=== PATIENT | female | born 1990 ===

== ENCOUNTER 2017-10-08 21:44 | Emergency (ER) | payer MEDICAID ==
--- NOTE | 2017-10-08 22:18 | Emergency Department Record ---
History of Present Illness - General Chief Complaint: Laceration(s) Stated Complaint: LACERATION ON FINGER OF LT HAND Time Seen by Provider: 10/08/17 22:14 Source: Patient Mode of Arrival: Ambulatory Limitations: No limitations - History of Present Illness Initial Commments: 27 yo female presents to ED for evaluation of a laceration to the left index finger while cutting fruit 30 minutes ago. Patient reports applying direct pressure which stopper her bleeding symptoms, denies numbness, tingling, or extension/flexion weakness on examination. Patient does not recall her last tetanus, denies health problems at her baseline. Onset/Timin -: Minutes(s) Extremity Location: Left: Hand Place: Home Context: Accidental Associated Symptoms: None Treatments Prior to Arrival: Bandage - [place] Coma Scale Eye Response: (4) Open spontaneously Motor Response: (6) Obeys commands Verbal Response: (5) Oriented Shayy Total: 15 - Related Data Hx Tetanus Toxoid Vaccination: Yes Patient Tetanus UTD (within 5 yrs): No Home Medications Medication Instructions Recorded Confirmed Last Taken Ranitidine HCl [Zantac] 150 mg PO DAILY 10/08/17 10/08/17 Unknown Previous Rx's Medication Instructions Recorded Cephalexin [Keflex] 500 mg PO QID #27 cap 10/08/17 Allergies Allergy/AdvReac Type Severity Reaction Status Date / Time Penicillins Allergy Severe Unverified 08/26/16 11:34 amoxicillin Allergy Mild rash Unverified 08/26/16 11:34 azithromycin Allergy Mild rash Unverified 08/26/16 11:34 Travel Screening - Travel/Exposure Within Last 30 Days Have you traveled within the last 30 days?: No - Travel Symptoms Symptom Screening: None Review of Systems Constitutional: Denies: Chills, Fever, Malaise, Night sweats Eyes: Denies: Eye discharge, Eye pain ENT: Denies: Congestion, Ear pain, Epistaxis Respiratory: Denies: Cough, Dyspnea Cardiovascular: Denies: Chest pain, Dyspnea on exertion Endocrine: Denies: Fatigue, Heat or cold intolerance Gastrointestinal: Denies: Abdominal pain, Nausea, Vomiting Genitourinary: Denies: Incontinence, Retention Musculoskeletal: Denies: Arthralgia, Back pain Skin: Reports: Other (Finger laceration). Denies: Bruising, Change in color Neurological: Denies: Abnormal gait, Confusion, Headache, Seizure Psychiatric: Denies: Anxiety Hematological/Lymphatic: Denies: Anemia, Blood Clots Past Medical History - SOCIAL HISTORY Smoking Status: Never smoker Alcohol Use: Rare Drug Use: None - RESPIRATORY Hx Respiratory Disorders: No - CARDIOVASCULAR Hx Cardio Disorders: No - NEURO Hx Neuro Disorders: Yes Comment:: ganglion cyst - GI Hx GI Disorders: Yes Hx Reflux: Yes - Hx Genitourinary Disorders: No - ENDOCRINE Hx Endocrine Disorders: No - MUSCULOSKELETAL Hx Musculoskeletal Disorders: No - PSYCH Hx Psych Problems: No - HEMATOLOGY/ONCOLOGY Hx Hematology/Oncology Disorders: No Family Medical History Any Significant Family History?: Yes Hx Alcohol Use: Father Hx Cancer: Mother *Cancer Comment: cervical/brain Hx Diabetes: Father Hx HTN: Father Hx Kidney Disease: Mother Hx Liver Disease: Father, Mother *Liver Comment: hep c-mother. father cirrohsis Physical Exam - General General Appearance: Alert, Oriented x3, Cooperative, Mild distress Limitations: No limitations - Head Head exam: Atraumatic, Normocephalic, Normal inspection Head exam detail: negative: Abrasion, Contusion, Peters's sign, General tenderness, Hematoma, Laceration - Eye Eye exam: Normal appearance. negative: Conjunctival injection, Periorbital swelling, Periorbital tenderness, Scleral icterus - ENT Ear exam: negative: Auricular hematoma, Auricular trauma Nasal Exam: negative: Active bleeding, Discharge, Dried blood, Foreign body Mouth exam: negative: Drooling, Laceration, Muffled voice, Tongue elevation - Neck Neck exam: Normal inspection. negative: Meningismus, Tenderness - Respiratory Respiratory exam: Normal lung sounds bilaterally. negative: Rales, Respiratory distress, Rhonchi, Stridor - Cardiovascular Cardiovascular Exam: Regular rate, Normal rhythm, Normal heart sounds Peripheral Pulses: 3+: Radial (L) - GI/Abdominal GI/Abdominal exam: Soft. negative: Rebound, Rigid, Tenderness - Rectal Rectal exam: Deferred - exam: Deferred - Extremities Extremities exam: Tenderness, Other (1.5 cm laceration over the dorsal aspect of the left index finger dorsally, no tendon laceration identified, bleeding well controlled.). negative: Calf tenderness, Pedal edema - Back Back exam: Denies: CVA tenderness (R), CVA tenderness (L) - Neurological Neurological exam: Alert, Normal gait, Oriented X3 - Psychiatric Psychiatric exam: Normal affect, Normal mood - Skin Skin exam: Normal color. negative: Abrasion Type of lesion: negative: abrasion Course Vital Signs 10/08/17 21:57 Temperature 98.4 F Pulse Rate [ 77 Pulse Ox Probe] Respiratory 18 Rate Blood Pressure 110/62 [Right Arm] Pulse Ox 96 - Reevaluation(s) Reevaluation #1: 10/08/17 22:35 1.5 cm laceration to the dorsum of the left index finger, bleeding controlled. Wound was cleaned and prepped in sterile fashion, no residual FB identified on examination. No tendon laceration is identified on examination, and extension/ flexion against resistance is intact on examination. Wound was anesthetized with 1.0 mL of 1% Sensorcaine with good anesthesia, and the laceration was repaired with 4-0 Prolene (#4) sutures in interrupted fashion. Patient tolerated the procedure well without complications. tetanus was updated prior to discharge. Will initiate keflex in ED as well as the patient was cutting food when the laceration occurred. Patient appears stable for discharge at this time. Disposition Disposition: Discharge Clinical Impression: Finger laceration Qualifiers: Encounter type: initial encounter Finger: index finger Damage to nail status: without damage Foreign body presence: without foreign body Laterality: left Qualified Code(s): S61.211A - Laceration without foreign body of left index finger without damage to nail, initial encounter Disposition: Home, Self-Care Condition: (2) Stable Instructions: Laceration (ED) Additional Instructions: Return to ED if your symptoms worsen or if you have any concerns. Keflex as directed. Follow-up with your family doctor in 3-5 days as directed. Prescriptions: Cephalexin [Keflex] 500 mg PO QID #27 cap Forms: Patient Portal Access Time of Disposition: 22:18 Quality - Quality Measures Quality Measures: N/A - Blood Pressure Screening Does Patient Have Any of the Following: No Blood Pressure Classification: Normal BP Reading Systolic Measurement: 110 Diastolic Measurement: 62 Screening for High Blood Pressure: < Normal BP, F/U Not Required > [G8783]
[2017-10-08] MEDS ORDERED: Diph,Pert(Acell),Tet Vac 0.5 ML SYR IM ONE (22:30)
[2017-10-08] MEDS ORDERED: CEPHALEXIN 500 MG CAPSULE PO STA (22:38)
== END 2017-10-08 22:50 | disposition home or self-care (01) ==
LOC: ER 21:44
DX: S61.211A Laceration without foreign body of left index finger without damage to nail, initial encounter (principal); W26.0XXA Contact with knife, initial encounter; Y92.009 Unspecified place in unspecified non-institutional (private) residence as the place of occurrence of the external cause
CPT/HCPCS: 12001; 90715; 96372; 99283

== ENCOUNTER → 2017-12-08 | Day surgery (SDC) | payer MEDICAID ==
[~2017-12-08] MED LIST: FENTANYL PF 100MCG/2ML VIAL IV ONE; KETOROLAC 30 MG/ML VIAL IVP ONE; LIDOCAINE 1% MDV (10MG/ML) 20ML VIAL SQ ONE; MIDAZOLAM HCL 2MG/2ML VIAL IV ONE; ONDANSETRON HCL IV 4 MG/2 ML VIAL IVP ONE; PROPOFOL 10 MG/ML VIAL IV ONE; SEVOFLURANE 250 ML INH ONE
--- NOTE | 2017-12-09 14:00 | Operative Note ---
DATE OF SURGERY: 12/08/2017 Surgeon: Milan Cramer DO PREOPERATIVE DIAGNOSIS: Ganglion on the dorsum of the right hand. POSTOPERATIVE DIAGNOSIS: Ganglion on the tendon sheath on dorsum of the right hand. OPERATION: Excision of the ganglion on the dorsum of the right hand using 3.5 loop magnification. DESCRIPTION OF PROCEDURE: This 27-year-old female was taken to the operating room and placed in the supine position on the operating room table. General anesthetic was administered. The right upper extremity was elevated. It was prepped with Hibiclens and draped in the usual sterile fashion. A transverse incision was made in Corinne's lines along the dorsum of the hand overlying the soft tissue mass. Dissection was carried down through the skin and subcutaneous tissue. Superficial vessels on the dorsum of the hand were protected and retracted in an ulnar direction. The ganglion was easily identified, and this was exposed. It was seen to be a ganglion of the tendon sheath which was actually in between the fibers and it split the fibers apart. We gently dissected this ganglion free to remove the ganglion completely. The tendon itself other than being by the ganglion was not violated. We allowed the tendon to come back together after the ganglion had been removed and did not further manipulate or disturb the tendon. The wound was irrigated with lactated Ringer's solution. Moving the fingers showed that we had completely removed all of the ganglion, and the tendons moved normally. The wound was closed with a running subcuticular 4-0 nylon suture. Sterile dressings were applied. The patient was taken to the recovery room in satisfactory condition. GROSS PATHOLOGY: This patient demonstrated a ganglion which was intratendinous and this was removed in the manner described above. CC: JUAN Dennis
== END | disposition home or self-care (01) ==
LOC: SUR 08:31
PROVIDERS: ATTEND Orthopaedic Surgery
DX: M67.441 Ganglion, right hand (principal); J45.909 Unspecified asthma, uncomplicated; F41.8 Other specified anxiety disorders
CPT/HCPCS: 26160; 01810; 81025; J1885; J2405; J3010

== ENCOUNTER 2018-05-12 19:14 | Emergency (ER) | payer MEDICAID ==
[2018-05-12] MEDS ORDERED: DEXAMETHASONE SOD PHOSPHATE 10MG/ML VIAL PO ONE (19:23)
[2018-05-12] MEDS ORDERED: ALBUTEROL SULFATE (0.083%) 2.5 MG/3 ML NEB INH ONE (19:23)
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
[2018-05-12 19:38] LABS: STREP A SCREEN NEGATIVE (NEGATIVE)
[2018-05-12 19:47] LABS: INFLUENZA A NEGATIVE (NEGATIVE); INFLUENZA B NEGATIVE (NEGATIVE)
== END 2018-05-12 19:52 | disposition home or self-care (01) ==
LOC: ER 19:14
DX: J06.9 Acute upper respiratory infection, unspecified (principal); R06.2 Wheezing; R06.00 Dyspnea, unspecified
CPT/HCPCS: 87400; 87880; 94640; 99283; J7613

== ENCOUNTER 2019-04-20 13:34 | Emergency (ER) | payer MEDICAID ==
[2019-04-20] MEDS ORDERED: 0.9 % SODIUM CHLORIDE 1,000 ML BAG IV ONE (14:08)
[2019-04-20 14:37] LABS: ABSOLUTE NEUTROPHIL COUNT 12.62; HEMATOCRIT 40.2 % (35.0-47.0); HEMOGLOBIN 12.8 gm/dl (11.6-16.0); MEAN CELL VOLUME 85.9 fl (81-97); MEAN CORPUSCULAR HEMOGLOBIN 27.4 pg (27-33); MEAN CORPUSCULAR HGB CONC 31.8 g/dl (32-36); MEAN PLATELET VOLUME 10.5 fl (7.4-10.4); PLATELET COUNT 284 K/uL (130-400); RED BLOOD COUNT 4.68 M/uL (3.80-5.40); RED CELL DISTRIBUTION WIDTH 13.4 % (11.5-14.5)
[2019-04-20 14:48] LABS: BLOOD UREA NITROGEN 12 mg/dL (6-20); CREATININE 0.7 mg/dL (0.5-0.9); EST GLOMERULAR FILTRATION RATE > 60 mL/min
[2019-04-20] MEDS ORDERED: ONDANSETRON HCL IV 4 MG/2 ML VIAL IVP ONE (14:48)
[2019-04-20 14:51] LABS: GLUCOSE,RANDOM 119 mg/dL (74-109)
[2019-04-20 14:52] LABS: INFLUENZA A NEGATIVE (NEGATIVE); INFLUENZA B NEGATIVE (NEGATIVE)
[2019-04-20 15:25] LABS: URINE APPEARANCE CLEAR; URINE BILIRUBIN NEGATIVE (NEGATIVE); URINE BLOOD NEGATIVE (NEGATIVE); URINE COLOR YELLOW; URINE GLUCOSE (UA) NEGATIVE (NEGATIVE); URINE KETONE NEGATIVE (NEGATIVE); URINE LEUKOCYTE ESTERASE MODERATE (NEGATIVE); URINE NITRITE NEGATIVE (NEGATIVE); URINE PROTEIN NEGATIVE (NEGATIVE); URINE UROBILINOGEN 0.2 E.U./dL (0.20 - 1.00)
[2019-04-20 15:34] LABS: URINE BACTERIA 2+; URINE RBC NONE SEEN (NONE SEEN)
[2019-04-20] MEDS ORDERED: KETOROLAC 30 MG/ML VIAL IVP ONE (16:56)
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
== END 2019-04-20 17:40 | disposition home or self-care (01) ==
LOC: ER 13:34
DX: N30.00 Acute cystitis without hematuria (principal); J02.0 Streptococcal pharyngitis; R19.7 Diarrhea, unspecified; R11.0 Nausea; R42 Dizziness and giddiness
CPT/HCPCS: 99284 ×2; 96374; 96375; 96361; 80048; 81001; 87880; 87400; 85027; J1885; J2405; J7030